=== PATIENT | female | born 1960 | race Caucasian/White ===

== ENCOUNTER → 2016-10-10 | Outpatient (CLI) | payer OTHER | LOC: FIMAGING 08:14 | PROVIDERS: ATTEND Family Medicine | DX: Z12.31 Encounter for screening mammogram for malignant neoplasm of breast (principal) | CPT/HCPCS: G0202 ==

== ENCOUNTER 2017-01-20 18:41 | Emergency (ER) | payer OTHER ==
[2017-01-20 19:19] VITALS: TEMP 98.6
--- NOTE | 2017-01-20 20:45 | EDPHY ---
H & P Stated Complaint: fell down stairs- left arm ribs pain Time Seen by Provider: 01/20/17 20:44 HPI/ROS: HPI: This is a 56-year-old female presents with Chief Complaint: fell down stairs- left arm ribs pain Location: Left shoulder, left arm, left anterior ribs, left big toe Quality: Injury Duration: 5 date hours prior to arrival Signs and Symptoms: No LOC, No bleeding, no radiation, no numbness, no weakness , no tingling, no incontinence, + decreased range of motion, + swelling, + pain Timing: Acute, worse with movement Severity: Moderate to severe Context: Patient reports that she woke up this morning and axis caught her heel on the top of the stairs. She fell approximately 10 stairs landing directly on her left shoulder and arm. She felt a little dizzy as well as nauseous but denies LOC. She has some posterior neck pain that is aching in nature but denies decreased range of motion. She is most concerned about her left shoulder upper arm area; decreased external rotation, pain with shoulder shrugging. Left hand dominant. Her left great toe also hurts to move associated mild swelling. Directly underneath her left breast she feels pain worsened with inspiration. Postmenopausal. She has not taken any over-the- counter pain medications or applied ice. Modifying Factors: Comment: ROS: see HPI Constitutional: No fever, no chills, no weight loss Eyes: No blurred vision Respiratory: No shortness of breath, no cough Cardiovascular: No chest pain Gastrointestinal: No nausea, no vomiting no diarrhea Genitourinary: No dysuria Extremities: No myalgias Neurologic: No weakness, no numbness Skin: No rashes Hematologic: No bruising, no bleeding MEDICAL/SURGICAL/SOCIAL HISTORY: Medical history: Generally healthy. Does not take any regular medications. Surgical history: Denies Social history: . Employed. CONSTITUTIONAL: Pleasant adult white female, awake and alert, no obvious distress HEENT: Atraumatic and normocephalic, PERRL, EOMI. no globe entrapment, no raccoon eyes. no Monroy signs.Tympanic membranes clear. No tympanic membrane rupture. Nares patent; no septal hematoma. Oropharynx clear, no exudate and moist pink mucosa. No malocclusion. no dental trauma. Airway patent. No lymphadenopathy. NECK: supple, no midline tenderness, flexion 45 degrees, extension 45 degrees, right and left lateral flexion 45 degrees. No meningismus. Cardiovascular: Normal S1/S2, regular rate, regular rhythm, without murmur rub or gallop. PULMONARY/CHEST: Symmetrical and moderate left anterior directly below the breast tenderness. no crepitus. Clear to auscultation bilaterally. Fair air movement. No accessory muscle usage. ABDOMEN: Soft, nondistended, nontender, no ecchymosis, no rebound, no guarding , no peritoneal signs, no masses or organomegaly. No CVAT. PELVIC: no pain with rocking; bilateral hips flexion 125 degrees, extension 30 degrees, with no pain internal rotation and no pain external rotation. BACK: No midline tenderness, no paraspinous spasm, deep tendon reflexes 2/2, no pain with straight leg raise EXTREMITIES: 2/2 pulses, left SHOULDER: Unable to perform arc test. abduction to 45, horizontal flexion 50 0, horizontal extension to 45, deltoid strength 5/5. Keeps left arm in 90 flexion at the elbow. Can perform shoulder shrug with moderate pain. Tenderness to palpation over AC joint. Left ELBOW: Full extension to 180, flexion to 150, no tenderness over medial epicondyle, no tenderness over lateral epicondyle, no effusion. Left KNEE: no effusion, no medial and lateral joint line tenderness, full extension to 180, flexion to 120 , no pain with varus and valgus exam. No pain with anterior drawer or posterior drawer test. no deformities, no clubbing, no cyanosis or edema. NEUROLOGICAL: no focal neuro deficits. GCS 15. SKIN: Warm and dry, no erythema. no rash. Good capillary refill. Source: Patient Exam Limitations: No limitations - Personal History LMP (Females 10-55): Post Menopausal Current Tetanus Diphtheria and Acellular Pertussis (TDAP): Yes - Medical/Surgical History Hx Asthma: No Hx Chronic Respiratory Disease: No Hx Diabetes: No Hx Cardiac Disease: No Hx Renal Disease: No Hx Cirrhosis: No Hx Alcoholism: No Hx HIV/AIDS: No Hx Splenectomy or Spleen Trauma: No Other PMH: denies - Social History Smoking Status: Never smoked Constitutional: Initial Vital Signs Temperature (C) 37 C 01/20/17 19:16 Heart Rate 80 01/20/17 19:16 Respiratory Rate 20 01/20/17 19:16 Blood Pressure 150/81 H 12/04/17 19:16 O2 Sat (%) 94 01/20/17 19:16 O2 Delivery Mode Room Air Allergies/Adverse Reactions: No Known Allergies Allergy (Unverified 01/20/17 19:15) Home Medications: Medication Instructions Recorded NK [No Known Home Meds] 01/20/17 Medical Decision Making - Diagnostics Imaging Results: Imaging Impressions Cervical Spine X-Ray 01/20/17 20:54 Impression: Abnormal cervical curvature may indicate underlying muscle spasm. No fracture or dislocation identified. Humerus X-Ray 01/20/17 20:54 Impression: Nothing acute identified. 2. Left Humerus, 2 views History: Pain post trauma, fall down stairs Findings: No fracture is identified. The elbow joint appears normally aligned. Impression: Negative. Shoulder X-Ray 01/20/17 20:54 Impression: Nothing acute identified. 2. Left Humerus, 2 views History: Pain post trauma, fall down stairs Findings: No fracture is identified. The elbow joint appears normally aligned. Impression: Negative. Ribs w/Chest X-Ray 01/20/17 20:55 Impression: Negative. Toe X-Ray 01/20/17 20:55 Impression: Nothing acute identified. ED Course/Re-evaluation: X-rays and oral medication ordered No signs of neurovascular compromise/tenting of skin/compartment syndrome/ extremities and joints examined above and below area of concern and are neurovascularly intact. GCS 15 with no neurological deficits. Given p.o. Flexeril. X-rays my review pack showed no acute fracture, dislocation Placed in left sling Advised Ortho follow-up, rice therapy, pain control This patient was seen under the supervision of my secondary supervising physician. I evaluated care for this patient independently. Patient's presentation, labs/imaging, treatment and plan of care were discussed with secondary supervising physician. Differential Diagnosis: Differential diagnosis includes but is not limited to humeral fracture, shoulder internal derangement, toe fracture, knee contusion, rib fracture, rib contusion. Departure - Departure Disposition: Home, Routine, Self-Care Clinical Impression: Cervical paraspinal muscle spasm Injury of left shoulder and upper arm Qualifiers: Encounter type: initial encounter Qualified Code(s): S49.92XA - Unspecified injury of left shoulder and upper arm, initial encounter Contusion of rib on left side Qualifiers: Encounter type: initial encounter Qualified Code(s): S20.212A - Contusion of left front wall of thorax, initial encounter Sprain of left great toe Qualifiers: Encounter type: initial encounter Qualified Code(s): S93.502A - Unspecified sprain of left great toe, initial encounter Condition: Good Instructions: Rib Contusion (ED), Rotator Cuff Injury (ED), Shoulder Sprain (ED ) Additional Instructions: Wear the sling until pain free or follow up with Orthopedics. Take Tylenol 650 mg every 4 hours and/or Ibuprofen 600 mg every 8 hours with food as needed for pain. Take Flexeril every 8 hr as needed for muscle spasm. Apply ice for 30 minutes at a time; 2-3 times per day for the next 1-2 days. Follow up with Orthopedics in 5-7 days at which time they will evaluate and recommend with you if conservative management versus surgery is indicated. The x-rays obtained in the emergency department today demonstrate no evidence of an obvious fracture. Sometimes fractures are not obvious on the initial set of x-rays performed in the ED. For this reason, you should have repeat x-rays performed in 7-10 days if you are having any pain exclude the possibility of an occult fracture. Referrals: Karis Brady MD [Primary Care Provider] - As per Instructions Edgardo Echols MD [Medical Doctor] - 5-7 days, call for appt.
[2017-01-20] MEDS ORDERED: CYCLOBENZAPRINE 10 MG TAB PO ONE (20:55)
[2017-01-20] MEDS ORDERED: HYDROCOD/APAP 5/325 PREPACK#6 BTL TAKEHOME ONE (22:02)
[2017-01-20] MEDS ORDERED: CYCLOBENZAPRINE 10MG PREPACK#3 BTL TAKEHOME ONE (22:02)
[2017-01-20 22:48] VITALS: BP 122/74; PULSE 83; RESP 16; O2SAT 95
== END 2017-01-20 22:39 | disposition home or self-care (01) ==
DX: S20.212A Contusion of left front wall of thorax, initial encounter (principal); M62.838 Other muscle spasm; S93.502A Unspecified sprain of left great toe, initial encounter; S49.92XA Unspecified injury of left shoulder and upper arm, initial encounter; W10.8XXA Fall (on) (from) other stairs and steps, initial encounter; Y99.8 Other external cause status
CPT/HCPCS: A4565

== ENCOUNTER → 2018-02-11 | Outpatient (CLI) | payer OTHER | LOC: FIMAGING 13:04 | PROVIDERS: ATTEND Family Medicine | DX: Z12.31 Encounter for screening mammogram for malignant neoplasm of breast (principal) ==